=== PATIENT | female | born 1970 | race Caucasian/White ===

== ENCOUNTER → 2022-06-08 11:09 | Outpatient (CLI) | payer OTHER, SELFPAY | PROVIDERS: Family Provider Naturopath; PCP Naturopath; Visit Provider Physician Assistant | DX: N39.0 Urinary tract infection, site not specified (principal) | CPT/HCPCS: 87086 ==

== ENCOUNTER → 2022-09-08 12:10 | Outpatient (CLI) | payer OTHER, SELFPAY ==
--- NOTE | 2022-09-08 | DI.RAD.S_ITS ---
PROCEDURE: XR SHOULDER RT MIN 2V INDICATIONS: CHRONIC PAIN TECHNIQUE: 3 views of the shoulder were acquired. COMPARISON: None. FINDINGS: Bones: No fractures or dislocations. No suspicious bony lesions. Visualized ribs appear intact. Soft tissues: No suspicious soft tissue calcifications. IMPRESSION: Unremarkable right shoulder radiographs Approved by: Mil Dick M.D. on 09/08/2022 at 13:59
== END ==
PROVIDERS: Family Provider Naturopath; PCP Naturopath; Referring Provider Family Medicine; Visit Provider Family Medicine
DX: M25.511 Pain in right shoulder (principal)
CPT/HCPCS: 73030

== ENCOUNTER → 2022-09-26 15:41 | Outpatient (CLI) | payer OTHER, SELFPAY ==
--- NOTE | 2022-09-26 | DI.MRI.S_ITS ---
PROCEDURE: MR SHOULDER RT WO CON INDICATIONS: chronic right shoulder pain TECHNIQUE: Noncontrast oblique coronal T2 fast spin echo with fat saturation, oblique sagittal T1 spin echo and T2 fast spin echo with fat saturation, axial T1 spin echo and T2 fast spin echo with fat saturation through the shoulder. COMPARISON: [facility], CR, XR SHOULDER RT MIN 2V, 09/08/2022, 12:26. FINDINGS: Image quality: Excellent. Rotator cuff: There is high-grade partial-thickness tear of the supraspinatus tendon involving the bursal surface. There is moderate infraspinatu and subscapularis tendinosis without high-grade tendon tear. Sagittal images demonstrate no rotator cuff muscle atrophy. Bones and bursae: No bone marrow contusions or fractures. There is moderate acromioclavicular and glenohumeral joint degeneration. The acromion demonstrates conventional anatomy, without an os acromiale. There is subacromial-subdeltoid bursal fluid consistent with bursitis. Capsule and soft tissues: There is degenerative fraying of the glenoid labrum. The long head of the biceps tendon demonstrates normal location and morphology. The rotator interval appears normal, without fibrosis. The coracohumeral ligament is normal in thickness. IMPRESSION: 1. High-grade partial thickness tear of the supraspinatus tendon involving the bursal surface. 2. Moderate infraspinatus and subscapularis tendinosis without high-grade tension tear. 3. No rotator cuff muscle atrophy. 4. Subacromial-subdeltoid bursitis. 5. Moderate acromioclavicular and glenohumeral joint degeneration. 6. Degenerative labral fraying. Dictated by: Axel Haywood M.D. on 09/26/2022 at 16:58 Approved by: Axel Haywood M.D. on 09/27/2022 at 8:52
== END ==
PROVIDERS: Family Provider Naturopath; PCP Naturopath; Referring Provider Family Medicine; Visit Provider Family Medicine
DX: M75.111 Incomplete rotator cuff tear or rupture of right shoulder, not specified as traumatic (principal); M75.51 Bursitis of right shoulder; M19.011 Primary osteoarthritis, right shoulder; M25.511 Pain in right shoulder
CPT/HCPCS: 73221

== ENCOUNTER → 2024-03-25 14:33 | Outpatient (CLI) | payer OTHER, SELFPAY | PROVIDERS: Family Provider Naturopath; PCP Naturopath; Visit Provider Physician Assistant Medical | DX: R30.0 Dysuria (principal) | CPT/HCPCS: 87086 ==

== ENCOUNTER → 2024-04-04 15:09 | Outpatient (CLI) | payer OTHER, SELFPAY | PROVIDERS: Family Provider Naturopath; PCP Naturopath; Visit Provider Nurse Practitioner Family | DX: J02.9 Acute pharyngitis, unspecified (principal) | CPT/HCPCS: 87070 ==

== ENCOUNTER 2024-04-10 06:14 | Emergency (ER) | payer OTHER, SELFPAY ==
[2024-04-10 06:23] VITALS: BP 135/80; PULSE 93; RESP 18; TEMP 37.6; O2SAT 98; BMI 26.9
[2024-04-10 06:29] VITALS: PULSE 90; O2SAT 100
[2024-04-10 07:00] VITALS: BP 139/76; PULSE 82; O2SAT 96
--- NOTE | 2024-04-10 07:10 | DI.RAD.S_ITS ---
PROCEDURE: XR CHEST 2V INDICATIONS: cough TECHNIQUE: 2 views of the chest were acquired. COMPARISON: None. FINDINGS: Surgical changes and devices: None. Lungs and pleura: Faint opacification in the right upper lobe anterior and posterior segments. No pleural effusions or pneumothorax. Mediastinum: Mediastinal contours are normal. Heart size is normal. Bones and chest wall: No suspicious bony abnormalities. Soft tissues appear unremarkable. IMPRESSION: Mild right upper lobe anterior and posterior segmental pneumonia. Dictated by: Jasmeet Roach M.D. on 04/10/2024 at 7:47 Approved by: Jasmeet Roach M.D. on 04/10/2024 at 7:48
--- NOTE | 2024-04-10 07:51 | ED_ITS ---
HPI - URI/Sore Throat General Chief Complaint: Upper Respiratory Symptoms Stated Complaint: coughing t-10 Time Seen by Provider: 04/10/24 06:29 Source: patient Mode of arrival: Ambulatory History of Present Illness HPI Narrative: Patient is a 54-year-old female relatively healthy presenting today with cough and body aches. She reports he has not felt well since March 31. She does get short of breath with exertion times. She has had some joint and body aches. She has no orthopnea no real sore throat. She does work as a [employer]. She has tried multiple [id number] medications without success. She has had low- grade temps reports that her normal heart rate is in the 60s it is in the 90s now. She was eating and drinking. No abdominal pain nausea vomiting or other symptoms. She did try 4 days of amoxicillin 500 twice a day without any sort relief Related Data Home Medications Medication Instructions Recorded Confirmed escitalopram oxalate 10 mg tablet 10 mg PO DAILY 03/25/24 04/04/24 spironolactone 50 mg tablet 50 mg PO BID 03/25/24 04/04/24 Previous Rx's Medication Instructions Recorded amoxicillin 500 mg capsule 500 mg PO BID #20 caps 04/04/24 amoxicillin 500 mg capsule 1,000 mg (2 x 500 mg) PO TID 5 04/10/24 days #30 caps azithromycin 250 mg tablet See Rx Instructions PO .COMPLEX #6 04/10/24 tabs prednisone 20 mg tablet 40 mg (2 x 20 mg) PO DAILY #10 tabs 04/10/24 Allergies Allergy/AdvReac Type Severity Reaction Status Date / Time No Known Drug Allergies Allergy Verified 04/04/24 15:08 Patient History Social History Smoking Status: Never smoker Smoking Status: Never smoker Exam Initial Vital Signs Initial Vital Signs: Vital Signs Temperature 99.7 F H 04/10/24 06:23 Pulse Rate 93 H 04/10/24 06:23 Respiratory Rate 18 04/10/24 06:23 Blood Pressure 135/80 04/10/24 06:23 Pulse Oximetry 98 04/10/24 06:23 Oxygen Delivery Method Room Air 04/10/24 06:23 GENERAL: Alert nontoxic 54-year-old female does not appear to not feel well HEENT: Head atraumatic,EOMI, pupils reactive, face symmetric, [moist] mucous membranes CARDIOVASCULAR: Regular rate and rhythm without murmurs, rubs or gallops. RESPIRATORY: Clear bilaterally minimal conversational dyspnea no rales or rhonchi ABDOMEN: Soft, nontender. Normoactive bowel sounds all 4 quadrants. No guarding or rebound. EXTREMITIES: Normal range of motion, no clubbing or edema. Neurovascularly intact NEUROLOGICAL: Alert and oriented x4.Normal gait and speech. Cranial nerves II through XII grossly intact. SKIN: Warm, dry, no laceration, no petechiae, no rashes or lesions. Course Orders Ordered: ED Orders 04/10/24 07:10 Chest [XR chest 2V] Stat Discontinued Medications Albuterol (Albuterol Hfa Prepack) 1 box MISC DIRECTED ONE Stop: 04/10/24 07:53 Last Admin: 04/10/24 08:16 Dose: 1 box Documented By: MARGARETTE Vital Signs Vital signs: Vital Signs - 8 hr 04/10/24 06:23 04/10/24 06:29 04/10/24 07:00 Temperature 99.7 F H Pulse Rate 93 H 90 82 Respiratory Rate 18 Blood Pressure 135/80 139/76 Pulse Oximetry 98 100 96 Oxygen Delivery Method Room Air 04/10/24 08:17 Temperature Pulse Rate Respiratory Rate Blood Pressure Pulse Oximetry 98 Oxygen Delivery Method Room Air MDM - URI/Sore Throat Imaging Data Chest x-ray: Radiologist's Impression: PROCEDURE: XR CHEST 2V INDICATIONS: cough TECHNIQUE: 2 views of the chest were acquired. COMPARISON: None. FINDINGS: Surgical changes and devices: None. Lungs and pleura: Faint opacification in the right upper lobe anterior and posterior segments. No pleural effusions or pneumothorax. Mediastinum: Mediastinal contours are normal. Heart size is normal. Bones and chest wall: No suspicious bony abnormalities. Soft tissues appear unremarkable. IMPRESSION: Mild right upper lobe anterior and posterior segmental pneumonia. Dictated by: Jasmeet Roach M.D. on 04/10/2024 at 7:47 MDM Narrative Medical decision making narrative: Patient healthy 54-year-old female presenting today with ongoing cough for the last 10 days. She was not hypoxic heart rate is in the 90s she is eating and drinking. Lung sounds are clear. Chest x-ray does confirm pneumonia. We talked about viral panel however with ongoing symptoms and a positive chest x- ray she was going to get antibiotics no need for viral panel. She was given albuterol inhaler and spacer teaching here in the ED. encouraged her to return if symptoms were not improving Discharge Plan Departure Patient Disposition: Home Clinical Impression: Pneumonia Instructions: DI for Pneumonia -- Adult Activity Restrictions/Additional Instructions: *You have been diagnosed with pneumonia *What to do: At this time increase fluid intake increase diet as tolerated hopefully you start feeling better in a couple of days *Continue to take medications as directed Amoxicillin 1000 mg 3 times a day for 5 days Azithromycin take as directed, hold escitalopram while taking then resume Prednisone 40 mg once a day for 5 days Albuterol inhaler every 4 hours if needed for cough or shortness of breath *Follow up with your primary care provider in 2-3 days or call [phone] *Return to ER if you should have increasing shortness of breath worsening cough increasing weakness or confusion or any new, worsening or concerning symptoms Prescriptions: New amoxicillin 500 mg capsule 1,000 mg PO TID 5 Days Qty: 30 0RF azithromycin 250 mg tablet See Rx Instructions PO .COMPLEX Qty: 6 0RF Rx Instructions: For 250 mg dose pack: take 500 mg today (day 1), then 250 mg for 4 days (days 2-5) prednisone 20 mg tablet 40 mg PO DAILY Qty: 10 0RF No Action spironolactone 50 mg tablet 50 mg PO BID escitalopram oxalate 10 mg tablet 10 mg PO DAILY amoxicillin 500 mg capsule 500 mg PO BID Qty: 20 0RF Referrals: Karen Murcia ND [Primary Care Provider] - Stand Alone Forms: Patient Portal/API/Survey
[2024-04-10] MEDS: ALBUTEROL HFA PREPACK 1 BOX MISC (08:16)
[2024-04-10 08:17] VITALS: O2SAT 98
== END 2024-04-10 08:28 | disposition home or self-care (01) ==
PROVIDERS: Emergency Provider Emergency Medicine; Family Provider Naturopath; PCP Naturopath
DX: J18.9 Pneumonia, unspecified organism (principal); R06.02 Shortness of breath
CPT/HCPCS: 71046; 99281; 99283